=== PATIENT | male | born 1940 | race Caucasian/White ===

== ENCOUNTER 2017-02-16 13:14 | Emergency (ER) | payer OTHER ==
--- NOTE | 2017-02-16 13:38 | UCPHY ---
H & P Patient Type: New Chief Complaint Nursing Narrative: c/o Mid abd pain since this am - has had several loose stools this am with out relief- states pain is getting worse with no relief- took OTC antiacid this am with out relief-currently has Nausea Time Seen by Provider: 02/16/17 13:25 HPI/ROS: Chief Complaint: Abdominal pain HPI: 76-year-old male began having epigastric abdominal pain after eating a steak for breakfast. Patient states the pain was initially in his upper abdomen , at its worst was a 7/10. It then migrated to around his umbilical area. Pain is currently a 3/10. Some nausea no vomiting. No fevers or chills. No chest pain or shortness of breath. He has had several loose stools today. Does not have a history of the same. Does have an umbilical hernia. Does not feel like it is entrapped this time. Took some Pepto-Bismol with gave him a little bit of relief. ROS: 10 point Review of Systems is negative except as noted in the HPI. PMH: Atrial fibrillation, type 2 diabetes, hyperlipidemia Medications: Diltiazem, metformin, losartan, pravastatin Allergies: Penicillin Social History: No smoking, occasional alcohol, no recreational drug use Family History: non-contributory Physical Exam: Gen: Awake, Alert, No Distress HEENT: Nose: no rhinorrhea Eyes: PERRLA, EOMI Mouth: Moist mucosa Neck: Supple, no JVD Chest: nontender, lungs clear to auscultation Heart: S1, S2 normal, no murmur Abd: Soft, right upper quadrant tenderness with a positive Wick sign reproducing presenting complaint with mild epigastric tenderness. He has a palpable umbilical hernia which is easily reduced. No lower abdominal tenderness, no guarding Back: no CVA tenderness, no midline tenderness Ext: no edema, non-tender Skin: no rash Neuro: CN II-XII intact, Sensation grossly intact, Strength 5/5 in bilateral upper and lower extremities - Personal History Current Tetanus Diphtheria and Acellular Pertussis (TDAP): Yes - Medical/Surgical History Other PMH: hernia/Ortho - Family History Significant Family History: No pertinent family hx - Social History Smoking Status: Never smoked Constitutional: Initial Vital Signs Temperature (C) 36.6 C 02/16/17 13:19 Heart Rate 90 02/16/17 13:19 Respiratory Rate 18 02/16/17 13:19 Blood Pressure 145/79 H 02/16/17 13:19 O2 Sat (%) 90 L 02/16/17 13:19 O2 Delivery Mode Room Air Allergies/Adverse Reactions: Penicillins Allergy (Verified 02/16/17 13:16) Home Medications: Medication Instructions Recorded Diltiazem 02/16/17 Losartan Potassium 02/16/17 Metformin HCl 02/16/17 Statin 02/16/17 Medical Decision Making - Diagnostics EKG Interpretation: ECG time 1346: Sinus rhythm with a rate of 87, normal axis, normal intervals, no acute ST or T-wave changes. Impression: Normal ECG. Imaging: Imaging Impressions Abdomen Ultrasound 02/16/17 13:35 IMPRESSION: 1. Gallbladder hydrops with some mobile sludge and gallbladder wall thickening. If there is further clinical concern, a nuclear medicine hepatobiliary scan could be considered. 2. There is no bile duct dilatation. 3. Mild right kidney upper pole caliectasis, which does not change after voiding. 4. Hepatomegaly. 5. Limited assessment of the pancreas and abdominal aorta secondary to overlying bowel gas. CT imaging could be considered, if of further clinical concern. Findings and suggestions were discussed with Francisco Javier Whiteside MD at 14:42, on 02/16/2017. Note: The patient's serum lipase returned, and is 2000 with an elevated white blood cell count suggestive of pancreatitis. ED Course/Re-evaluation: 76-year-old male presenting with epigastric pain after eating with now right upper quadrant tenderness. No history of the same. Will obtain labs, ECG, troponin, LFTs with lipase, troponin and right upper quadrant ultrasound. Gallbladder ultrasound is negative. Patient's blood work consistent with acute pancreatitis. This he had also has awakened of 16. Patient is afebrile here. Vital signs are normal. He has not required any pain medicine. Does not have any nausea or vomiting. He does not want a [facility]. I because discussion with his primary care physician doctor, Dr. Maximus Turk. He is in agreement with the plan to discharge the patient home given that the remainder of the patient's laboratory evaluations are unremarkable and the patient is in such good condition at this time. He will see him in his office tomorrow. Patient understands that if the symptoms worsen at all he will go immediately to the nearest emergency department for further evaluation. I have a concerns that the patient does not want to stay in the hospital and given that without close follow-up arranged I am comfortable discharging him home at this time as he is afebrile his pain is under control. - Data Points Laboratory Results: Laboratory Results 02/16/17 13:45 02/16/17 13:45 02/16/17 04 13:45 13:45 WBC 16.73 10^3/uL H 10^3/uL (3.80-9.50) RBC 4.47 10^6/uL 10^6/uL (4.40-6.38) Hgb 13.5 g/dL L g/dL (13.7-17.5) Hct 39.9 % L % (40.0-51.0) MCV 89.3 fL fL (81.5-99.8) MCH 30.2 pg pg (27.9-34.1) MCHC 33.8 g/dL g/dL (32.4-36.7) RDW 12.5 % % (11.5-15.2) Plt Count 345 10^3/uL 10^3/uL (150-400) MPV 9.3 fL fL (8.7-11.7) Neut % (Auto) 85.8 % H % (39.3-74.2) Lymph % (Auto) 4.5 % L % (15.0-45.0) Ray % (Auto) 9.2 % % (4.5-13.0) Eos % (Auto) 0.0 % L % (0.6-7.6) Baso % (Auto) 0.1 % L % (0.3-1.7) Nucleat RBC Rel Count 0.0 % % (0.0-0.2) Absolute Neuts (auto) 14.36 10^3/uL H 10^3/uL (1.70-6.50) Absolute Lymphs (auto) 0.75 10^3/uL L 10^3/uL (1.00-3.00) Absolute Monos (auto) 1.54 10^3/uL H 10^3/uL (0.30-0.80) Absolute Eos (auto) 0.00 10^3/uL L 10^3/uL (0.03-0.40) Absolute Basos (auto) 0.01 10^3/uL L 10^3/uL (0.02-0.10) Absolute Nucleated RBC 0.00 10^3/uL 10^3/uL (0-0.01) Immature Gran % 0.4 % % (0.0-1.1) Immature Gran # 0.07 10^3/uL 10^3/uL (0.00-0.10) Sodium 138 mEq/L mEq/L (134-144) Potassium 4.7 mEq/L mEq/L (3.5-5.2) Chloride 101 mEq/L mEq/L (97-110) Carbon Dioxide 22 mEq/l mEq/l (22-31) Anion Gap 15 mEq/L mEq/L (8-16) BUN 27 mg/dL H mg/dL (7-23) Creatinine 1.0 mg/dL mg/dL (0.7-1.3) Estimated GFR > 60 Glucose 96 mg/dL mg/dL (70-100) Calcium 9.2 mg/dL mg/dL (8.5-10.4) Total Bilirubin 0.8 mg/dL mg/dL (0.1-1.4) Conjugated Bilirubin 0.4 mg/dL mg/dL (0.0-0.5) Unconjugated Bilirubin 0.4 mg/dL mg/dL (0.0-1.1) AST 34 IU/L IU/L (17-59) ALT 29 IU/L IU/L (21-72) Alkaline Phosphatase 62 IU/L IU/L (38-126) Troponin I 0.013 ng/mL ng/mL (0-0.034) Total Protein 7.5 g/dL g/dL (6.3-8.2) Albumin 4.2 g/dL g/dL (3.5-5.0) Lipase 1867.0 IU/L H IU/L (23-300) Departure - Departure Disposition: Home, Routine, Self-Care Clinical Impression: Pancreatitis Condition: Good Instructions: Pancreatitis (ED) Additional Instructions: Follow up with Dr. Saunders tomorrow. Go directly to the nearest emergency department for increasing pain, nausea, vomiting, fevers, chills, weakness, fainting, or any other concerns. Referrals: Otteman,Isac B, DO [Primary Care Provider] - As per Instructions - PQRS PQRS Measurement: 134: Depression screening and followup, PRIME MD-PHQ2 (12 years and older) Over the last 2 weeks, how often have you been bothered by any of the following problems? 1. Feeling down, depressed, or hopeless? 2. Little interest or pleasure in doing things? Patient answered no to both 1 and 2 130: Documentation of medications. Reviewed all patient medications, doses, route and frequency. 226: Do you smoke? No. 47: 65 and older: Advanced care planning. Patient designates surrogate decision maker as daughter. Patient has advanced directive. 51: 18 years old and older with diagnosis of COPD, spirometry performance. Patient has no history of COPD 52: 18 years old and older with COPD and symptoms of COPD or FEV1<60% predicted prescribed a B Agonist. Spirometry not performed; equipment not available.
--- NOTE | 2017-02-16 13:48 | CPEKG ---
Heart Rate: 87 RR Interval: 690 P-R Interval: 192 QRSD Interval: 90 QT Interval: 356 QTC Interval: 429 P [place]: 63 QRS [place]: 24 T Wave [place]: 20 EKG Severity - NORMAL ECG - EKG Impression: SINUS RHYTHM Electronically Signed By: Francisco Javier Whiteside 16-Feb-2017 14:05:24
[2017-02-16 13:53] LABS: % IMMATURE GRANULYOCYTES 0.4 % (0.0-1.1); ABSOLUTE IMMATURE GRANULOCYTES 0.07 10^3/uL (0.00-0.10); ADD DIFF? NO; ADD MORPH? NO; ADD SCAN? NO; ATYPICAL LYMPHOCYTE FLAG 0 (0-99); FRAGMENT RBC FLAG 0 (0-99); HEMATOCRIT 39.9 % (40.0-51.0); HEMOGLOBIN 13.5 g/dL (13.7-17.5); LEFT SHIFT FLG 0 (0-99); LIPEMIA HEMOLYSIS FLAG 90 (0-99); MEAN CELL HEMOGLOBIN 30.2 pg (27.9-34.1); MEAN CELL HEMOGLOBIN CONCENTR. 33.8 g/dL (32.4-36.7); MEAN CELL VOLUME 89.3 fL (81.5-99.8); MEAN PLATELET VOLUME 9.3 fL (8.7-11.7); PLATELET CLUMPS FLAG 0 (0-99); PLATELET COUNT 345 10^3/uL (150-400); RED BLOOD CELL COUNT 4.47 10^6/uL (4.40-6.38); RED CELL DISTRIBUTION WIDTH 12.5 % (11.5-15.2)
[2017-02-16 14:15] LABS: ALANINE AMINOTRANSFERASE 29 IU/L (21-72); ALBUMIN 4.2 g/dL (3.5-5.0); ALKALINE PHOSPHATASE 62 IU/L (38-126); ANION GAP 15 mEq/L (8-16); ASPARTATE AMINOTRANSFERASE 34 IU/L (17-59); BILIRUBIN,TOTAL 0.8 mg/dL (0.1-1.4); BILIRUBIN-CONJUGATED 0.4 mg/dL (0.0-0.5); BILIRUBIN-UNCONJUGATED 0.4 mg/dL (0.0-1.1); CALCIUM 9.2 mg/dL (8.5-10.4); CARBON DIOXIDE 22 mEq/l (22-31); CHLORIDE 101 mEq/L (97-110); GLOMERULAR FILTRATION RATE > 60; GLUCOSE 96 mg/dL (70-100); POTASSIUM 4.7 mEq/L (3.5-5.2); SODIUM 138 mEq/L (134-144); TOTAL PROTEIN 7.5 g/dL (6.3-8.2)
[2017-02-16 14:25] LABS: TROPONIN I 0.013 ng/mL (0-0.034)
[2017-02-16 15:21] VITALS: BP 132/98; PULSE 95; O2SAT 92
[2017-02-16 15:25] VITALS: RESP 16; TEMP 98.1
== END 2017-02-16 15:14 | disposition home or self-care (01) ==
LOC: CED 13:14
DX: K85.90 Acute pancreatitis without necrosis or infection, unspecified (principal); I48.91 Unspecified atrial fibrillation; E11.9 Type 2 diabetes mellitus without complications; E78.5 Hyperlipidemia, unspecified
CPT/HCPCS: 76705; 93005; G0463; 80048-PO; 80076-PO; 83690-PO; 84484-PO; 85025-PO; 93010-PO; 99205-PO

== ENCOUNTER → 2018-07-03 | Outpatient (CLI) | payer OTHER | LOC: CIMAGING 10:59 | PROVIDERS: ATTEND Family Medicine | DX: M79.89 Other specified soft tissue disorders (principal); M79.605 Pain in left leg; I51.7 Cardiomegaly; R91.8 Other nonspecific abnormal finding of lung field; J98.11 Atelectasis | CPT/HCPCS: 71046-PO ==

== ENCOUNTER → 2018-08-31 | Outpatient (CLI) | payer OTHER | LOC: CIMAGING 08:45 | PROVIDERS: ATTEND Family Medicine | DX: J18.9 Pneumonia, unspecified organism (principal) | CPT/HCPCS: 71046-PO ==

== ENCOUNTER → 2019-01-17 | Outpatient (CLI) | payer OTHER | LOC: EDSTATUS 07:43 → CIMAGING 15:27 | PROVIDERS: ATTEND Family Medicine | DX: J44.9 Chronic obstructive pulmonary disease, unspecified (principal) | CPT/HCPCS: 71046-PO ==